=== PATIENT | male | born 1990 | race African-American/Black ===

== ENCOUNTER 2018-03-25 23:43 | Emergency (ER) | payer OTHER ==
[~2018-03-25] VITALS: Ht 175.3 cm; Wt 100.7 kg
[2018-03-26 00:03] VITALS: Ht 175.3 cm; Wt 100.7 kg
[2018-03-26 01:22] VITALS: BP 160/95
== END 2018-03-26 01:22 | disposition home or self-care (01) ==
LOC: ED 23:43
DX: K08.89 Other specified disorders of teeth and supporting structures (principal)
CPT/HCPCS: J1885

== ENCOUNTER 2018-04-01 06:01 | Emergency (ER) | payer OTHER ==
[~2018-04-01] VITALS: Ht 180.3 cm; Wt 102.5 kg
[2018-04-01 06:07] VITALS: BP 136/74; Ht 180.3 cm; Wt 102.5 kg
== END 2018-04-01 06:36 | disposition home or self-care (01) ==
LOC: ED 06:01
DX: B30.9 Viral conjunctivitis, unspecified (principal)